=== PATIENT | female | born 1975 | race Two or more races ===

== ENCOUNTER 2023-06-02 12:17 | Emergency (ER) | payer OTHER ==
[~2023-06-02] VITALS: Ht 170.2 cm; Wt 103.8 kg
[2023-06-02 12:43] VITALS: BP 130/65; PULSE 79; RESP 18; TEMP 97.6; O2SAT 97
[2023-06-02] MEDS ORDERED: KETOROLAC TROMETH 60MG/2ML VIAL IM ONE (12:45)
[2023-06-02] MEDS ORDERED: METH-1182 PO (13:31)
[2023-06-02] MEDS ORDERED: IBUP-1456 PO (13:31)
== END 2023-06-02 13:41 | disposition home or self-care (01) ==
LOC: ER 12:17
DX: S39.012A Strain of muscle, fascia and tendon of lower back, initial encounter (principal); S83.8X2A Sprain of other specified parts of left knee, initial encounter; W01.0XXA Fall on same level from slipping, tripping and stumbling without subsequent striking against object, initial encounter; Y93.89 Activity, other specified; Y92.89 Other specified places as the place of occurrence of the external cause; Y99.8 Other external cause status
CPT/HCPCS: 72100; 73562; 96372; 99284; J1885

== ENCOUNTER 2024-01-04 12:58 | Emergency (ER) | payer BC, MEDICAID, OTHER ==
[~2024-01-04] VITALS: Ht 170.2 cm; Wt 96.0 kg
[~2024-01-04 12:58] MED LIST: IBUP-1456 PO; METH-1182 PO
[2024-01-04] MEDS: IPRATROPIUM BROM 0.5 MG/2.5ML INH SOL NEB ONE (13:44)
[2024-01-04] MEDS: ALBUTEROL SULF 2.5 MG/0.5ML(0.5%) NEB SOLN NEB ONE (13:44)
[2024-01-04] MEDS: DexAMETHasone SOD PHOS 10MG/1ML VIAL INJ IM ONE (14:00)
[2024-01-04] MEDS ORDERED: BENZ100C97 PO (16:43)
[2024-01-04] MEDS ORDERED: LORA10CA PO (16:43)
[2024-01-04] MEDS ORDERED: ALBU108A5 IN (16:43)
[2024-01-04 16:52] VITALS: BP 119/92; PULSE 98; RESP 19; TEMP 97.9; O2SAT 98
== END 2024-01-04 16:54 | disposition home or self-care (01) ==
LOC: ER 12:58
DX: J06.9 Acute upper respiratory infection, unspecified (principal)
CPT/HCPCS: 71046; 94640; 96372; 99283; J1100; J7644